=== PATIENT | male | born 1980 | race Caucasian/White ===

== ENCOUNTER → 2024-01-11 | Outpatient (CLI) | payer BC, SELFPAY ==
[2024-01-11 12:24] LABS: Absolute Lymphocyte Count 1.58 X10^3/uL (0.83-4.51); Absolute Neutrophil Count 4.6 X10^3/uL (2.0-7.7); Basophil# 0.03 X10^3/uL; Basophil% 0.4 % (0-1); Eosinophil# 0.11 X10^3/uL; Eosinophils% 1.6 % (0-5); Hemoglobin 12.9 g/dL (13.0-16.5); Lymphocyte # 1.58 X10^3/ul (0.83-4.51); Lymphocyte % 23.5 % (19-41); Mean Corp Hgb Conc 32.3 g/dL (32-36); Mean Corpuscular Hgb 29.7 pg (27.0-32.0); Mean Platelet Vol. 11.2 fl (6.2-12.0); Monocyte# 0.41 X10^3/uL; Monocyte% 6.1 % (0-10); NRBC Flagged by Analyzer 0 % (0-5); Neutrophil # 4.57 X10^3/uL (2.7-7.7); Platelet Count 229 K/mm3 (150-450); RBC Distribution Width CV 13.2 % (11.6-14.6); RBC Distribution Width SD 45.2 fl (35.1-43.9); Red Blood Count 4.35 M/mm3 (4.6-6.2); White Blood Count 6.7 K/mm3 (4.4-11.0)
[2024-01-11 12:58] LABS: Vitamin D,25 Hydroxy 17.6 ng/mL
[2024-01-11 13:34] LABS: ALB/GLOB Ratio 1.2 RATIO (0.9-2.4); AST(SGOT) 21 U/L (15-37); Alanine Aminotransfer ALT/SGPT 41 U/L (16-61); Albumin, Serum 3.7 g/dL (3.2-5.0); Alkaline Phosphatase 82 U/L (45-117); Anion Gap 9 (5-15); BUN 9 mg/dL (7-18); BUN/Creat Ratio 10.3 RATIO (10-20); Calcium,Total 8.8 mg/dL (8.5-10.1); Chloride 105 mmol/L (98-107); Cholesterol 219 mg/dL (200); Creatinine, Serum 0.87 mg/dL (0.70-1.30); EST Glomerular Filtration Rate 102 mL/min (>60); Est Glom Filt Rate - Afr Amer 124 mL/min (>60); Globulin 3.2 g/dL (2.2-4.2); Glucose 89 mg/dL (74-106); High Density Lipoprotein 43 mg/dL; Potassium 4.1 mmol/L (3.5-5.1); Protein, Total 6.9 g/dL (6.4-8.2); Sodium Level 137 mmol/L (136-145); Triglycerides 147 mg/dL; Very Low Density Lipoprotein 29 mg/dL (5-40)
== END | disposition home or self-care (01) ==
LOC: MFPLAB 10:33
PROVIDERS: PCP Family Medicine; Referring Provider Family Medicine; Visit Provider Family Medicine
DX: Z13.220 Encounter for screening for lipoid disorders (principal); Z13.1 Encounter for screening for diabetes mellitus; G47.10 Hypersomnia, unspecified; R03.0 Elevated blood-pressure reading, without diagnosis of hypertension
CPT/HCPCS: 36415; 80053; 80061; 82306; 84443; 85025

== ENCOUNTER → 2024-02-03 | Outpatient (CLI) | payer BC, SELFPAY | END | disposition home or self-care (01) | PROVIDERS: PCP Family Medicine; Referring Provider Family Medicine; Visit Provider Family Medicine | DX: G47.10 Hypersomnia, unspecified (principal) | CPT/HCPCS: 95806 ==

== ENCOUNTER → 2024-03-06 | Outpatient (CLI) | payer BC, SELFPAY | END | disposition home or self-care (01) | LOC: SL 08:57 | PROVIDERS: PCP Family Medicine; Visit Provider Family Medicine | DX: G47.33 Obstructive sleep apnea (adult) (pediatric) (principal) ==

== ENCOUNTER → 2024-07-07 | Outpatient (CLI) | payer BC, SELFPAY | END | disposition home or self-care (01) | LOC: MFPLAB 11:22 | PROVIDERS: PCP Family Medicine; Referring Provider Family Medicine; Visit Provider Family Medicine | DX: R53.83 Other fatigue (principal) | CPT/HCPCS: 36415; 84402; 84403 ==

== ENCOUNTER → 2024-07-19 | Outpatient (CLI) | payer BC, SELFPAY | END | disposition home or self-care (01) | LOC: MFPLAB 10:48 | PROVIDERS: PCP Family Medicine; Referring Provider Family Medicine; Visit Provider Family Medicine | DX: R53.83 Other fatigue (principal) | CPT/HCPCS: 36415; 84402; 84403 ==